=== PATIENT | female | born 1935 | race Caucasian/White ===

== ENCOUNTER 2016-10-28 12:48 | Observation (INO) ==
[2016-10-28] MEDS ORDERED: POTASSIUM CHLORIDE 20 MEQ/15 ML UDCUP PER TUBE PRN (13:27)
[2016-10-28] MEDS ORDERED: MAGNESIUM SULF RIDER 4 GM in PREMIX 1 EACH IV PRN (13:27)
[2016-10-28] MEDS ORDERED: DOCUSATE SODIUM 100 MG CAPSULE PO PRN (13:27)
[2016-10-28] MEDS ORDERED: ONDANSETRON 4 MG/2 ML VIAL IV PRN (13:27)
[2016-10-28] MEDS ORDERED: ACETAMINOPHEN 325 MG TABLET PO PRN (13:27)
[2016-10-28] MEDS ORDERED: MORPHINE 2 MG/1 ML SYRINGE IV PRN (13:27)
[2016-10-28] MEDS ORDERED: MAGNESIUM SULF RIDER 2 GM in PREMIX 1 EACH IV PRN ×2 (13:27→16:34)
[2016-10-28] MEDS ORDERED: ENOXAPARIN 60 MG/0.6 ML SYRINGE SUBCUT ONE (16:33)
[2016-10-28] MEDS ORDERED: POTASSIUM CHLORIDE RIDER 10 MEQ in PREMIX 1 EACH IV PRN (16:34)
--- NOTE | 2016-10-28 17:11 | Cardiology History & Physical ---
Assessment and Plan - Time spent with patient Time spent with patient: Greater than 30 minutes (1) REEDER (dyspnea on exertion) Status: Acute Assessment and plan: SEE PLAN OF CARE LISTED BELOW Current Visit: Yes (2) Chest pain Status: Acute Assessment and plan: SEE PLAN OF CARE LISTED BELOW Current Visit: Yes (3) Fatigue Status: Chronic Assessment and plan: SEE PLAN OF CARE LISTED BELOW Current Visit: Yes (4) Hypertension Status: Chronic Assessment and plan: SEE PLAN OF CARE LISTED BELOW Current Visit: Yes (5) Dyslipidemia Status: Chronic Assessment and plan: SEE PLAN OF CARE LISTED BELOW Current Visit: Yes (6) Sleep disorder Status: Chronic Assessment and plan: SEE PLAN OF CARE LISTED BELOW Current Visit: Yes History of Present Illness Chief complaint: CHEST PAIN, SOB History of present illness: 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 Villa, 81WF, without a known history of cardiac disease. Risk factors include: age, hypertension, dyslipidemia. Patient was directly admitted from Dr. Lao's office today with complaints of chest pain, shortness of breath, fatigue. Dr. Lao contacted Dr. De La Torre who accepted the patient in transfer for chest pain, abnormal EKG. Daughter is Rosa who works at [employer]. For the past 12 months, patient has had significant dyspnea on exertion, fatigue limiting her activities of daily living. Walking room to room causes extreme REEDER, rest relieves. This seems to be progressing and worsening in intensity, duration and frequency. This morning, patient and chest heaviness in the center of her chest without radiation. This lasted approximately 30 minutes or until she received 2 aspirin and nitroglycerin sublingually. She never had this particular type of discomfort before. It was associated with shortness of breath, some nausea, no diaphoresis. She can identify no aggravating factors. For many years she has had "sharp pain" in center of her chest. It is brief, with no real pattern to the chest discomfort. Exercise does not re-create the discomfort however, she has been extremely sedentary over the past year due to significant REEDER. Therefore, it is difficult to ascertain whether there is been change in chest pain with exertion. Rates the discomfort as a 7 on a scale of 1-10. Patient is currently chest pain-free and , as long as she is sitting, she is having no shortness of breath. Of note, patient has been told that she holds her breath severely while she sleeps as noted by numerous family members. When she has had surgical procedures, SPO2 saturations dropped into the 80s and frequently have difficulty increasing the SPO2 saturation. She snores heavily and is chronically fatigued. She has been told she needs a sleep study in the past and she is agreeable for evaluation. Will consult Dr. Browne. Until patient started taking Metoprolol several years ago, daughter reports it is not uncommon for her mother had a heart rate of 170 bpm. She still feels occasional palpitations but has never been diagnosed with an arrhythmia. Daughter reports that she has had vein stripping in her past and believes that her mother had a blood clot many years ago. However, she did not have any treatment including a blood thinner during that timeframe so I doubt this was actually a DVT. She denies vomiting of blood or passing blood in her stool. No IVP dye allergy or allergy to shellfish. We will rule out other sources of chest pain to include DVT by use of venous ultrasound. Continue cycle her cardiac biomarkers and EKG. Because her symptoms of dyspnea on exertion or life altering at this point, I will keep patient n.p.o. after midnight tonight. I have discussed with Dr. Chun and Dr. De La Torre. Both of which have recommended cardiac catheterization and I will schedule her for left heart catheterization in the morning. Also, echocardiogram tomorrow. Will further discuss with Dr. Chun and await additional recommendations. ASSESSMENT/PLAN: 1. REEDER - concerning for angina. N.p.o. after midnight for possible cardiac catheterization in the morning. 2. CHEST PAIN - atypical for chest pain but REEDER concerning. Will add PPI, CXR , EKG. 3. HYPERTENSION - usually well-controlled on betablocker 4. DYSLIPIDEMIA - FLP in the morning. Continue lipid lowering agent 5. FATIGUE - GARCES labs, UA, LHC, echo. 6. SLEEP DISORDER - concerning for sleep apnea. We will consult Dr. Browne for evaluation tomorrow 7. SOFT BILATERAL CAROTID BRUITS - carotid US in the am Home Medications Medication Instructions Recorded Confirmed Type Aspirin [Ecotrin] 81 mg PO DAILY 10/28/16 10/28/16 History Black Cohosh 80 mg PO DAILY 10/28/16 10/28/16 History Metoprolol Succinate 25 mg PO DAILY 10/28/16 10/28/16 History Omeprazole 20 mg PO DAILY 10/28/16 10/28/16 History Allergies Allergy/AdvReac Type Severity Reaction Status Date / Time propoxyphene [From Darvon] Allergy Mild Nausea Verified 10/28/16 16:52 Review of systems: REVIEW OF SYSTEMS: - Constitutional Constitutional: Present: Fatigue. Absent: syncope, anorexia, night sweats - EENT Eyes: Absent: blurry vision, loss of vision, diplopia Ears: Absent: decreased hearing, ear pain, ear discharge - Cardiovascular Cardiovascular: Present: chest pain at various times. Dyspnea on exertion, room to room. Denies edema. Frequent palpitations. Absent: chest pain with deep breath, claudication - Respiratory Respiratory: Present: REEDER, denies cough. Absent: wheezing, hemoptysis, change in phlegm color - Gastrointestinal Gastrointestinal: Present: constipation alternating with diarrhea. Absent: abdminal pain, hematemesis, hematochezia, melena, change in bowel habits, nausea - Genitourinary Genitourinary: Absent: difficulty urinating, dysuria, urinary hesitancy, flank pain - Musculoskeletal Musculoskeletal: Present: back pain Absent: joint swelling, muscle cramps, muscle weakness - Neurological Neurological: Present: normal gait without frequent falls. Absent: dizziness, hemiparesis - Psychiatric Psychiatric: Absent: anxiety, depression, difficulty concentrating - Endocrine Endocrine: Present: fatigue. Absent: cold intolerance, heat intolerance, polyuria, polyphagia, polydipsia - Hematologic/Lymphatic Hematologic/Lymphatic: Present: easy bruising. Absent: easy bleeding -Integumentary Integumentary: Absent: lesions, rashes, skin breakdown Medical,Surgical,& Family Hx - Medical History Cardio: History of: Hypertension No history of: Cardiac Dysrhythmia, CAD, [place] Neurology: No history of: TIA Endocrine: History of: Dyslipidemia No history of: Diabetes Mellitus (IDDM), Diabetes Mellitus (NIDDM) Gastrointestinal: No history of: Crohn's Disease, Liver Problems, Gastrointestinal Cancer Hematology: No history of: Anemia Other: No history of: Cancer - Surgical History Cardiac Surgeries: Patient Denies: Cardiac Catheterization, Internal Defibrillator HEENT Surgeries: Patient denies: Carotid Endarterectomy Abdominal Surgeries: Surgical HX of: Cholecystectomy Reproductive Surgeries: Surgical HX of;: Hysterectomy - Social History Smoking Status: Never smoker Have you smoked in the last 12 months: No Frequency of Alcohol Use: None Type of Drug Use: None Marital Status: Lives With:: Spouse Functional capacity: independent ambulation Cardiology Physical Exam - Constitutional Vitals: Intake and Output 10/28/16 10/28/16 10/28/16 07:59 15:59 23:59 Other: Weight 67.132 kg Patient Weight 10/28/16 23:59 Weight 67.132 kg Exam: General: [Appears well with no apparent distress.] [Pleasant and cooperative. ] [Appears comfortable.] HEENT: [PERRL, normocephalic, atraumatic. Mucous membranes moist. No jaundice noted. Conjunctiva moist and clear, sclerae anicteric] Neck: No JVD/HJR, no thyromegaly or lymphadenopathy noted. Bilateral carotid bruits noted. Cardiac: [Regularly irregular rhythm] [No obvious murmur rub or gallop.] . Lungs: [Clear to auscultation without accessory muscle use to assist the respiratory pattern.] Not requiring oxygen Abdomen: Soft, bowel sounds normoactive. Nontender and nondistended. No abdominal bruit or thrill noted. No masses noted. Musculoskeletal: No fluid collection. Decreased range of motion is noted. Extremities: No clubbing, cyanosis noted. [ No edema noted.] Upper extremity pulses 2+. Lower extremity pulses 2+. Capillary refill less than 3 seconds. Multiple varicosities noted bilateral lower extremities. Skin: No unusual lesions or rashes. No skin breakdown appreciated. Neuro: Awake, alert and oriented 3. Moves all extremities well without hemiparesis or paralysis. No essential tremor is appreciated. Result/EKG - Labs Lab Results: I have reviewed the past 24 hour labs (Pending) - Diagnostic Findings Procedure: Chest x-ray: pending - EKG EKG results: interpreted by me EKG shows: sinus rhythm
[2016-10-28 17:18] LABS: Basophils % 0.4 % (0.0-0.8); Eosinophils # 0.2 10*3/uL (0.0-0.87); Eosinophils % 2.4 % (0.00-10.9); Hematocrit 42.4 VOL% (35.7-47.0); Hemoglobin 13.9 GM/DL (12.0-16.0); Immature Granulocytes % 0.3 %; Immature Granulocytes Absolute 0.02 #; Lymphocytes # 2.4 10*3/uL (1.4-4.0); Lymphocytes % 31.9 % (21.3-54.2); Mean Corpuscular HGB Conc 32.8 GM/DL (32-36); Mean Corpuscular Hemoglobin 31 PG (27-34); Mean Corpuscular Volume 94.9 FL (87-102); Monocytes # 0.7 10*3/uL (0.11-0.8); Monocytes % 9.3 % (1.7-12.7); Neutrophils # 4.1 10*3/uL (1.4-7.4); Neutrophils % 55.7 % (38.7-73.9); Platelet Count 236 T/CUMM (130-400); Red Blood Count 4.47 MC/CUMM (3.8-5.5); White Blood Count 7.4 T/CUMM (4-12)
[2016-10-28 17:35] LABS: PT Patient Result 10.4 SECS
[2016-10-28] MEDS: ASPIRIN EC 325 MG TABLET PO SCH (17:40)
[2016-10-28] MEDS: SODIUM CHLORIDE 0.45% 1,000 ML IV SCH (17:40)
[2016-10-28 17:57] LABS: Alanine Aminotransferase 20 U/L (13-56); Albumin 3.8 G/DL (3.4-5.0); Alkaline Phosphatase 99 U/L (45-117); Aspartate Amino Transferase 14 U/L (0-37); Bilirubin,Total < 0.39 MG/DL (0.2-1.0); Blood Urea Nitrogen 21 MG/DL (7-18); Calcium 9.1 MG/DL (8.5-10.1); Glucose 141 MG/DL (74-106); Osmolality,Calculated 285.3 MOS/KG (273-304); Potassium 4.1 MMOL/L (3.5-5.1); Sodium 141 MMOL/L (136-145); Total Protein 7.2 G/DL (6.4-8.3)
[2016-10-28 18:00] LABS: Troponin I Only < 0.015 NG/ML (0.00-0.045)
[2016-10-28 18:22] LABS: Apearance,Urine Slightly Hazy (Clear); Bacteria,Urine Occasional /HPF (Few); Bilirubin,Urine Negative (Negative); Blood, Urine Negative (Negative); Glucose,Urine (UA) Negative (Negative); Ketones,Urine Negative (Negative); Mucus,Urine Occasional /LPF (Occasional); Nitrite,Urine Negative (Negative); Protein,Urine Negative; RBC,Urine 4 /HPF (0-4); Squamous Epithelial Cell,Urine Occasional /HPF (0-10); Urine Color Yellow (Yellow); Urine Specific Gravity 1.016 (1.001-1.035); Urine Urobilinogen < 2.0 EU/DL (0.2-1.0); WBC,Urine 35 /HPF (0-6)
--- NOTE | 2016-10-28 18:55 | XRay Report ---
XR chest 2V Indication: SOB Comparison: None Technique: Frontal and lateral views of the chest. Findings: Mild cardiomegaly. Chronic change of the lungs without focal consolidation, pleural effusion, or pneumothorax. Diffuse osteopenia. Significant S-shaped curvature of the spine. IMPRESSION: Mild cardiomegaly without miguel pulmonary edema. PROCEDURE INTERPRETED AT [facility] DEPARTMENT OF RADIOLOGY Final Report Signed by: Dr Daniel Mora
--- NOTE | 2016-10-28 18:56 | Ultrasound Report ---
US venous doppler LE BI Indication: Edema. Comparison: None. Technique: Grayscale, spectral, and color Doppler interrogation of the bilateral lower extremity veins was performed. Augmentation and compression was performed. Findings: Grayscale, color Doppler, and pulsed Doppler evaluation of the veins of the bilateral lower extremity demonstrates no evidence of deep venous thrombosis. IMPRESSION: No evidence of deep venous thrombosis in either lower extremity. PROCEDURE INTERPRETED AT [facility] DEPARTMENT OF RADIOLOGY Final Report Signed by: Dr Daniel Mora
--- NOTE | 2016-10-28 18:59 | Ultrasound Report ---
US carotid duplex BI Indication: Bilateral carotid bruits. Comparison: None. Technique: Multiple longitudinal and transverse real-time sonographic images of the bilateral carotid arterial systems are obtained with grayscale, spectral, and color Doppler analysis. Findings: Peak systolic velocities within the right CCA, proximal ICA, and distal ICA are 78, 34, and 83 cm/s respectively. Peak systolic velocities within the left CCA, proximal ICA, and distal ICA are 78, 75, and 62 cm/s respectively. ICA/CCA ratios on the right and left are 1.1 and 1.0 respectively. Antegrade flow demonstrated within the bilateral vertebral arteries. Grayscale imaging demonstrates mild bilateral atherosclerotic plaque. IMPRESSION: No convincing sonographic evidence of significant (50% or greater) narrowing of either cervical internal carotid artery. Indirect NASCET criteria utilized. PROCEDURE INTERPRETED AT [facility] [place] DEPARTMENT OF RADIOLOGY Final Report Signed by: Dr Daniel Mora
[2016-10-28 22:45] LABS: Troponin I Only < 0.015 NG/ML (0.00-0.045)
[2016-10-29] MEDS: SODIUM CHLORIDE 0.45% 1,000 ML IV SCH ×3 (01:00→06:47)
[2016-10-29 05:16] LABS: Basophils % 0.6 % (0.0-0.8); Eosinophils # 0.3 10*3/uL (0.0-0.87); Eosinophils % 4.8 % (0.00-10.9); Hematocrit 37.5 VOL% (35.7-47.0); Hemoglobin 12.5 GM/DL (12.0-16.0); Immature Granulocytes % 0.3 %; Immature Granulocytes Absolute 0.02 #; Lymphocytes # 3.1 10*3/uL (1.4-4.0); Lymphocytes % 44.5 % (21.3-54.2); Mean Corpuscular HGB Conc 33.3 GM/DL (32-36); Mean Corpuscular Hemoglobin 31 PG (27-34); Mean Corpuscular Volume 94.2 FL (87-102); Mean Platelet Volume 11.8 FL (9.6-12.0); Monocytes # 0.7 10*3/uL (0.11-0.8); Monocytes % 10.2 % (1.7-12.7); Neutrophils # 2.7 10*3/uL (1.4-7.4); Neutrophils % 39.6 % (38.7-73.9); Platelet Count 194 T/CUMM (130-400); Red Blood Count 3.98 MC/CUMM (3.8-5.5); Red Cell Distribution Width 12.7 % (9.3-17.3); White Blood Count 6.9 T/CUMM (4-12)
[2016-10-29 05:53] LABS: Troponin I Only < 0.015 NG/ML (0.00-0.045)
[2016-10-29 05:55] LABS: Bilirubin,Total 0.5 MG/DL (0.2-1.0); Calcium 8.2 MG/DL (8.5-10.1); Osmolality,Calculated 286.8 MOS/KG (273-304); Potassium 4.6 MMOL/L (3.5-5.1); Risk Ratio 3.57; Total Protein 5.8 G/DL (6.4-8.3); VLDL CHOLESTEROL 14.4 MG/DL
[2016-10-29] MEDS ORDERED: diphenhydrAMINE CAP 25 MG CAPSULE PO ONE (06:00)
[2016-10-29] MEDS ORDERED: DIAZEPAM 5 MG TABLET PO ONE (06:00)
[2016-10-29] MEDS ORDERED: LIDOCAINE 1% 20 ML VIAL ONE (06:53)
[2016-10-29] MEDS ORDERED: HEPARIN/NACL 0.9% 2 UNITS/ML 1,000 ML IV ONE (06:53)
--- NOTE | 2016-10-29 07:09 | EKG Report ---
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
[2016-10-29] MEDS: PANTOPRAZOLE 40 MG TABLET PO SCH ×2 (07:17→09:22)
[2016-10-29] MEDS: ASPIRIN EC 325 MG TABLET PO SCH ×2 (07:17→09:21)
[2016-10-29] MEDS: METOPROLOL SUCCINATE XL 25 MG TABLET PO SCH ×2 (07:17→09:22)
[2016-10-29] MEDS ORDERED: HYDROmorphone 2 MG/1 ML VIAL ONE (07:41)
[2016-10-29] MEDS ORDERED: NITROGLYCERIN DRIP 50 MG/250 ML BOTTLE IV ONE (07:41)
[2016-10-29] MEDS ORDERED: MIDAZOLAM 2 MG/2 ML VIAL ONE (07:41)
[2016-10-29] MEDS ORDERED: VERAPAMIL 5 MG/2 ML VIAL ONE (07:41)
[2016-10-29] MEDS ORDERED: ENOXAPARIN 30 MG/0.3 ML SYRINGE ONE (08:21)
--- NOTE | 2016-10-29 08:39 | Cardiac Catheterization ---
Date of Procedure:: 10/29/16 Procedure: CLINICAL HISTORY: Please see the history and physical. The patient was having symptoms concerning for angina with an abnormal stress test. She is undergoing cardiac catheterization at this time for definitive coronary artery assessment possible revascularization. PROCEDURES PERFORMED: 1. Right radial percutaneous arteriotomy 2. Left heart catheterization 3. Resting hemodynamics 4. Left ventriculography. 5. Coronary arteriography 6. Hemoband placement DESCRIPTION OF PROCEDURE: After obtaining informed consent, the patient was taken to the laborer petroleum refinery, prepped and draped in the usual sterile manner. We accessed the right radial artery using modified Seldinger technique in the usual fashion. We placed a 6-Yakut slim sheath without difficulty. We then used a Tig catheter to engage the right coronary and left main coronary arteries to perform angiography in multiple orthogonal views. There were no problems or complications during the procedure. We then used an angled pigtail catheter to perform a left heart catheterization with left ventriculogram and pressure measurement in the usual fashion. After removing the catheter, we placed a HemoBand and removed the sheath without difficulty. There were no problems during the case. HEMODYNAMICS: Please see the accompanying data sheet. LVEDP is 13 mmHg. CORONARIES: The left main coronary artery is a large-caliber vessel which trifurcates into the left anterior descending left circumflex and ramus intermedius branches. The left main coronary artery is angiographically free of significant obstructive disease. The left circumflex coronary artery is a moderate-sized vessel which gives off a moderate-sized obtuse marginal branch. The left circumflex coronary artery is angiographically free of significant obstructive disease. The ramus intermedius is a small to moderate sized vessel which courses over the anterolateral wall. This vessel is angiographically free of significant obstructive disease. The left anterior descending is a moderate to large caliber vessel which gives off a moderate-sized diagonal branch. The left anterior descending coronary artery and its tributaries are angiographically free of significant obstructive disease. The right coronary artery is a large-caliber vessel which gives off the posterior descending artery and a posterior lateral system. The right coronary artery is angiographically free of significant obstructive disease. LEFT VENTRICULOGRAPHY: Left ventriculogram shows left ventricular ejection fraction of approximately 60-65% with normal regional wall motion. IMPRESSION: 1. Normal coronary arteries. 2. Normal left ventricular systolic function. 3. Normal left ventricular end-diastolic pressure. PLAN: The patient does not have any significant obstructive coronary artery disease at this time. After recovery from the catheterization she could probably be discharged home today. We may need to arrange outpatient gastrointestinal evaluation which may be the source of her presenting symptoms. Anesthesia: minimal conscious sedation Surgeon / Physician: Catrachito Chun Estimated blood loss: minimal Condition: stable Disposition: floor - Medications / Follow-up
[2016-10-29] MEDS ORDERED: NON-FORMULARY MEDICATION (Omeprazole [Omeprazole] 20 MG) PO SCH (09:00)
--- NOTE | 2016-10-29 10:25 | Discharge Summary ---
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 Villa, 81WF, without a known history of cardiac disease. Risk factors include: age, hypertension, dyslipidemia. Patient was directly admitted from Dr. Lao's office today with complaints of chest pain, shortness of breath, fatigue. Dr. Lao contacted Dr. Bridges who accepted the patient in transfer for chest pain, abnormal EKG. Daughter is Rosa who works at [employer]. Patient's cardiac biomarkers were negative, EKG was stable. Complaints were concerning for angina. For this reason, she underwent elective cardiac catheterization performed by Dr. Chun October 29, 2016 with the following noted: IMPRESSION: 1. Normal coronary arteries. 2. Normal left ventricular systolic function. 3. Normal left ventricular end-diastolic pressure. PLAN: The patient does not have any significant obstructive coronary artery disease at this time. After recovery from the catheterization she could probably be discharged home today. We may need to arrange outpatient gastrointestinal evaluation which may be the source of her presenting symptoms. Carotid ultrasound revealed no evidence of significant stenosis. Venous ultrasound bilateral lower extremity reveal no DVT. Chest x-ray revealed no acute findings. She tolerated the procedure well without complication was returned to telemetry unit in stable condition. She has been ambulating without difficulty. She was found to have a urinary tract infection was given Cipro 500 mg orally twice daily to take for 7 days. Anxious for release home, she is being discharged home in stable condition. She prefers to follow-up with Dr. Chun and I will give her a 2-3 week follow-up with Dr. Chun at that time. Diagnosis - Discharge Diagnosis (1) REEDER (dyspnea on exertion) Status: Acute (2) Chest pain Status: Acute (3) Fatigue Status: Chronic (4) Hypertension Status: Chronic (5) Dyslipidemia Status: Chronic (6) Sleep disorder Status: Chronic Discharge Plan - Discharge Medications No Action Black Cohosh 80 mg PO DAILY Aspirin [Ecotrin] 81 mg PO DAILY Omeprazole 20 mg PO DAILY Metoprolol Succinate 25 mg PO DAILY - Follow Up or Referral - Forms/Instructions Exam - Constitutional Vitals: Period Temp Pulse Resp BP Sys/Restrepo Pulse Ox Last 24 Hr 97.2 F-97.8 F 41-53 16-20 112-156/53-75 93-99 Discharge Results Procedures and tests throughout hospitalization: Pending Orders 10/28/16 Urine Culture Routine 10/29/16 06:55 CL heart Routine Labs on day of discharge: Labs from last 24 hours 10/29/16 10/29/16 10/29/16 05:03 05:03 05:03 WBC 6.9 RBC 3.98 Hgb 12.5 Hct 37.5 MCV 94.2 MCH 31 MCHC 33.3 RDW 12.7 Plt Count 194 MPV 11.8 Neut % (Auto) 39.6 Lymph % (Auto) 44.5 Clarke % (Auto) 10.2 Eos % (Auto) 4.8 Baso % (Auto) 0.6 Neut # (Auto) 2.7 Lymph # (Auto) 3.1 Clarke # (Auto) 0.7 Eos # (Auto) 0.3 Baso # (Auto) 0.0 Immature Gran % 0.3 Nucleated RBC % 0.0 Immature Gran # 0.02 Nucleated RBCs # 0.00 INR PT Patient/Control Mix Sodium 144 Potassium 4.6 Chloride 111 H Carbon Dioxide 27 Anion Gap 10.6 BUN 16 Creatinine 0.70 GFR Calculation 80 BUN/Creatinine Ratio 22.00 H Glucose 93 Calculated Osmolality 286.8 Calcium 8.2 L Total Bilirubin 0.50 AST 10 ALT 14 Alkaline Phosphatase 81 Total Creatine Kinase 46 D CK-MB (CK-2) 1.2 Troponin I < 0.015 Total Protein 5.8 L Albumin 3.0 L Globulin 2.8 Albumin/Globulin Ratio 1.0 L Triglycerides 72 Cholesterol 182 LDL Cholesterol 114.0 VLDL Cholesterol 14.4 HDL Cholesterol 51 Heart Disease Risk Ratio 3.57 Free T4 TSH 3rd Generation Urine Color Urine Appearance Urine pH Ur Specific [place] Urine Protein Urine Glucose (UA) Urine Ketones Urine Blood Urine Nitrate Urine Bilirubin Urine Urobilinogen Urine Leukocytes Urine RBC Urine WBC Ur Squamous Epith Cells Urine Bacteria Urine Mucus Ur Culture Indicated? 10/28/16 10/28/16 10/28/16 21:33 16:49 16:47 WBC RBC Hgb Hct MCV MCH MCHC RDW Plt Count MPV Neut % (Auto) Lymph % (Auto) Clarke % (Auto) Eos % (Auto) Baso % (Auto) Neut # (Auto) Lymph # (Auto) Clarke # (Auto) Eos # (Auto) Baso # (Auto) Immature Gran % Nucleated RBC % Immature Gran # Nucleated RBCs # INR 1.0 PT Patient/Control Mix 10.4 Sodium 141 Potassium 4.1 Chloride 106 Carbon Dioxide 29 Anion Gap 10.1 BUN 21 H Creatinine 0.90 GFR Calculation 59 BUN/Creatinine Ratio 23.00 H Glucose 141 H Calculated Osmolality 285.3 Calcium 9.1 Total Bilirubin < 0.39 AST 14 ALT 20 Alkaline Phosphatase 99 Total Creatine Kinase 58 CK-MB (CK-2) < 1.0 Troponin I < 0.015 Total Protein 7.2 Albumin 3.8 Globulin 3.4 Albumin/Globulin Ratio 1.1 Triglycerides Cholesterol LDL Cholesterol VLDL Cholesterol HDL Cholesterol Heart Disease Risk Ratio Free T4 TSH 3rd Generation 1.160 Urine Color Urine Appearance Urine pH Ur Specific [place] Urine Protein Urine Glucose (UA) Urine Ketones Urine Blood Urine Nitrate Urine Bilirubin Urine Urobilinogen Urine Leukocytes Urine RBC Urine WBC Ur Squamous Epith Cells Urine Bacteria Urine Mucus Ur Culture Indicated? 10/28/16 10/28/16 10/28/16 16:47 16:47 16:47 WBC 7.4 RBC 4.47 Hgb 13.9 Hct 42.4 MCV 94.9 MCH 31 MCHC 32.8 RDW 13.0 Plt Count 236 MPV 12.0 Neut % (Auto) 55.7 Lymph % (Auto) 31.9 Clarke % (Auto) 9.3 Eos % (Auto) 2.4 Baso % (Auto) 0.4 Neut # (Auto) 4.1 Lymph # (Auto) 2.4 Clarke # (Auto) 0.7 Eos # (Auto) 0.2 Baso # (Auto) 0.0 Immature Gran % 0.3 Nucleated RBC % 0.0 Immature Gran # 0.02 Nucleated RBCs # 0.00 INR PT Patient/Control Mix Sodium Potassium Chloride Carbon Dioxide Anion Gap BUN Creatinine GFR Calculation BUN/Creatinine Ratio Glucose Calculated Osmolality Calcium Total Bilirubin AST ALT Alkaline Phosphatase Total Creatine Kinase 66 CK-MB (CK-2) 1.2 Troponin I < 0.015 Total Protein Albumin Globulin Albumin/Globulin Ratio Triglycerides Cholesterol LDL Cholesterol VLDL Cholesterol HDL Cholesterol Heart Disease Risk Ratio Free T4 0.96 TSH 3rd Generation Urine Color Urine Appearance Urine pH Ur Specific [place] Urine Protein Urine Glucose (UA) Urine Ketones Urine Blood Urine Nitrate Urine Bilirubin Urine Urobilinogen Urine Leukocytes Urine RBC Urine WBC Ur Squamous Epith Cells Urine Bacteria Urine Mucus Ur Culture Indicated? 10/28/16 16:00 WBC RBC Hgb Hct MCV MCH MCHC RDW Plt Count MPV Neut % (Auto) Lymph % (Auto) Clarke % (Auto) Eos % (Auto) Baso % (Auto) Neut # (Auto) Lymph # (Auto) Clarke # (Auto) Eos # (Auto) Baso # (Auto) Immature Gran % Nucleated RBC % Immature Gran # Nucleated RBCs # INR PT Patient/Control Mix Sodium Potassium Chloride Carbon Dioxide Anion Gap BUN Creatinine GFR Calculation BUN/Creatinine Ratio Glucose Calculated Osmolality Calcium Total Bilirubin AST ALT Alkaline Phosphatase Total Creatine Kinase CK-MB (CK-2) Troponin I Total Protein Albumin Globulin Albumin/Globulin Ratio Triglycerides Cholesterol LDL Cholesterol VLDL Cholesterol HDL Cholesterol Heart Disease Risk Ratio Free T4 TSH 3rd Generation Urine Color Yellow Urine Appearance Slightly hazy Urine pH 5.0 Ur Specific [place] 1.016 Urine Protein Negative Urine Glucose (UA) Negative Urine Ketones Negative Urine Blood Negative Urine Nitrate Negative Urine Bilirubin Negative Urine Urobilinogen < 2.0 H Urine Leukocytes Large H Urine RBC 4 Urine WBC 35 Ur Squamous Epith Cells Occasional Urine Bacteria Occasional Urine Mucus Occasional Ur Culture Indicated? Results to follow Preliminary micro results at discharge 10/28/16 Unknown Urine Culture - Preliminary Urine,Voided No Growth at 12 hours. DS: Provider Date of admission: 10/28/16 16:13 Primary care physician: Tao Lao Attending physician on admission: Bharat Hart Consults: 10/28/16 17:29 Consult to Sleep Center [CONS] Routine Reason for Sleep Center: Sleep Center Physician Consult Comment: sleep disorder concerning for sleep apnea Discharging clinician: Cecilia Conklin NP
[2016-10-29] MEDS ORDERED: CIPROFLOXACIN 500 MG TABLET PO SCH (10:30)
--- NOTE | 2016-10-29 12:49 | Sleep Medicine Consult ---
Assessment and Plan (1) Sleep disorder Status: Chronic Assessment and plan: This patient could very well have sleep apnea. Her symptoms certainly are quite concerning for. A history of witnessed apneas is very reliable and likely means that she does indeed have obstructive sleep apnea. Since she resides in [place], we will schedule her for polysomnography at the [facility] sleep disorder center. Thank you for this consult. Follow-up will be there in the [place] sleep clinic. Current Visit: Yes (2) Hypertension Status: Chronic Assessment and plan: The prevalence rate for obstructive sleep apnea patients with hypertension is 35 %. That rate can be as high as 80% in patients who require 4 or more medications for blood pressure control. Current Visit: Yes History of Present Illness Chief complaint: Sleep apnea History of present illness: Ms. Villa is a 81 year old female admitted with chest pain and shortness of breath. During the course of her evaluation, it was noted that she had loud snoring, abnormal breathing during sleep, and difficulty maintaining sleep. She does have multiple awakenings at night and has a hard time staying asleep. She does snore loudly and has had family members tell her that she stops breathing during her sleep. She does have significant issues with sleepiness during the day, having an [place] sleepiness score of 12. Her stop bang score was 5. She does have a history of hypertension. She resides in [place]. Home Medications Medication Instructions Recorded Confirmed Type Aspirin [Ecotrin] 81 mg PO DAILY 10/28/16 10/28/16 History Black Cohosh 80 mg PO DAILY 10/28/16 10/28/16 History Metoprolol Succinate 25 mg PO DAILY 10/28/16 10/28/16 History Omeprazole 20 mg PO DAILY 10/28/16 10/28/16 History Allergies Allergy/AdvReac Type Severity Reaction Status Date / Time propoxyphene [From Darvon] Allergy Mild Nausea Verified 10/28/16 16:52 Review of systems: Otherwise unremarkable from a sleep medicine standpoint Exam (Pulmonay) H&P - Constitutional Vitals: Period Temp Pulse Resp BP Sys/Restrepo Pulse Ox Last 24 Hr 97.2 F-97.8 F 41-53 16-20 112-156/53-75 93-99 Exam: She is alert and responsive in no acute distress. Pupils equal round reactive to light and accommodation. Extraocular movements intact. Oropharynx with a class IV Mallampati exam. Neck is supple without adenopathy or thyromegaly. No supraclavicular adenopathy is noted. Chest with symmetrical breath sounds without focal wheeze, rhonchi, or rales. Cardiac exam reveals a regular rhythm without murmur or gallop. Abdomen soft nontender without palpable hepatosplenomegaly or mass. Extremities are without clubbing, cyanosis, or edema. Neurologically, she is grossly intact. She moves all extremities with good strength. She answers all questions appropriately. Medical,Surgical,& Family Hx - Medical History Cardio: History of: Hypertension No history of: Cardiac Dysrhythmia, CAD, [place] Neurology: No history of: TIA HEENT: History of: Eye Problem (bilat cataracts) Endocrine: History of: Dyslipidemia No history of: Diabetes Mellitus (IDDM), Diabetes Mellitus (NIDDM) Respiratory: History of: Asthma Genitourinary: History of: Bladder Problem (sling placement 2007) Gastrointestinal: History of: Diverticulitis/ Diverticulosis, GERD, Hemorrhoids , Ulcerative Colitis, GI Problems No history of: Crohn's Disease, Liver Problems, Gastrointestinal Cancer Musculoskeletal: History of: Back/Neck Problems, Herniated Disk Hematology: No history of: Anemia Other: No history of: Cancer - Surgical History Cardiac Surgeries: Patient Denies: Cardiac Catheterization, Carotid Endarterectomy, Internal Defibrillator HEENT Surgeries: Patient denies: Carotid Endarterectomy Abdominal Surgeries: Surgical HX of: Abdominal Surgery, Appendectomy, Cholecystectomy, Colonoscopy, EGD Reproductive Surgeries: Surgical HX of;: Gynecologic Surgery, Hysterectomy Orthopedic Surgeries: Surgical HX of;: Orthopedic Surgery (metal plates in bilateral wrists, left ankle fx) - Family History Family History: Reports;: Family Cancer (brother), Family Diabetes (father), Family Heart Disease (mother), Family Hypertension (mother) - Social History Smoking Status: Never smoker Frequency of Alcohol Use: None Type of Drug Use: None Results - Labs CBC & BMP: 10/29/16 05:03 10/29/16 05:03 Lab Results: I have reviewed the past 24 hour labs Labs: TSH is within normal limits.
--- NOTE | 2016-10-29 12:56 | ECHO Report ---
Tamara Villa Exam Date: 10/29/2016 07:19 Referring Physician: Technologist: annmarie Light ARDMS, RVT Age: 81 Ht (in): 62 Wt (lb): 148 Gender: F Exam Location: [facility] Echo Indications: Chest pain, unspecified, Dyspnea on exertion, Other fatigue, Essential (primary) hypertension, Abnormal electrocardiogram [ECG] [EKG], Dyslipidemia BP: 139 / 75 HR: 55 Rhythm: Sinus Technical Quality: Technically difficult study IMPRESSIONS Technically difficult study. Left ventricular ejection fraction is estimated at 55-60 %. Mild bilateral atrial enlargement. Mild mitral valve regurgitation. Mild aortic valve regurgitation. Mild tricuspid valve regurgitation. MEASUREMENTS (Male / Female) Normal Values 2D ECHO LV Diastolic Diameter PLAX 5.6 cm 4.2 - 5.9 / 3.9 - 5.3 cm LV Systolic Diameter PLAX 3.5 cm LV Fractional Shortening PLAX 37.4 % IVS Diastolic Thickness 0.7 cm 0.6 - 1.0 / 0.6 - 0.9 cm LVPW Diastolic Thickness 0.8 cm 0.6 - 1.0 / 0.6 - 0.9 cm RV Internal Dim ED PLAX 2.9 cm Aortic Root Diameter 3.3 cm LA Systolic Diameter LX 4.2 cm 3.0 - 4.0 / 2.7 - 3.8 cm DOPPLER TR Peak Velocity 285.0 cm/s TR Peak Gradient 32.5 mmHg FINDINGS Left Ventricle Normal left ventricular cavity size. Normal left ventricular wall thickness. Left ventricular ejection fraction is estimated at 55-60 %. Right Ventricle The right ventricle is normal in size and function. Right Atrium The right atrium is mildly enlarged. Left Atrium The left atrium is mildly enlarged. Mitral Valve Morphologically normal mitral valve. Mild mitral valve regurgitation. Aortic Valve Mild aortic valve regurgitation. No aortic valve stenosis. Tricuspid Valve Morphologically normal tricuspid valve. Mild tricuspid valve regurgitation. Tricuspid regurgitation velocities suggest a PAP of 42 mmHg. Pulmonic Valve Morphologically normal pulmonic valve. Trace pulmonary valve regurgitation. Pericardium Normal pericardium without effusion. Aorta Normal ascending aorta dimension. Catrachito Chun (Electronically Signed) Final Date: 29 October 2016 12:55
[2016-10-29 16:13] VITALS: BP 138/61
[2016-10-30] MEDS ORDERED: ESCITALOPRAM 10 MG TABLET PO SCH (09:00)
== END 2016-10-29 17:36 | disposition home or self-care (01) ==
LOC: N.TELES 16:13 → INTOOBSV 16:13
PROVIDERS: ADMIT Internal Medicine Cardiovascular Disease; ATTEND Internal Medicine Cardiovascular Disease
PROC: CLCCHCL (ICD-10-PCS; 2016-10-29 08:45)